=== PATIENT | female | born 1965 | race Caucasian/White ===

== ENCOUNTER 2017-01-21 16:52 | Emergency (ER) | payer BC, OTHER ==
[~2017-01-21] VITALS: Ht 166.4 cm; Wt 74.6 kg
[2017-01-21 17:02] VITALS: TEMP 37; Ht 166.4 cm; Wt 74.6 kg
--- NOTE | 2017-01-21 17:42 | DIAGNOSTIC IMAGING REPORT ---
SINGLE VIEW CHEST CLINICAL HISTORY: Atypical chest pain. FINDINGS: An AP, portable, upright chest radiograph is obtained. No prior studies are available for comparison at the time of dictation. The examination is degraded by portable technique and patient rotation. A right internal jugular central venous infusion port is in place. The tip projects over the superior vena cava. The cardiomediastinal silhouette is unremarkable. There is mild elevation of left hemidiaphragm with left basilar atelectasis. No airspace consolidation is seen typical for pneumonia and there is no large pleural effusion. No pneumothorax is seen. The bony thorax is grossly intact. Surgical clips are noted in the upper abdomen. IMPRESSION: No acute cardiopulmonary abnormality. Electronically signed by: Hitesh Castellon M.D. 01/21/2017 5:40 PM Dictated Date/Time: 01/21/2017 5:39 PM
[2017-01-21] MEDS ORDERED: HYDROmorphone INJ 0.5 MG/0.5 ML SYR IV STA ×3 (18:02→21:27)
[2017-01-21] MEDS ORDERED: PROMETHAZINE HCL INJ 25 MG in SODIUM CHLORIDE 0.9% 50ML 50 ML IV STA (18:02)
[2017-01-21 18:12] LABS: BASO % 0.6 %; BASO ABS # 0.04 K/uL (0-0.2); COMPLETE YES; EOS % 3.4 %; HEMATOCRIT 30.5 % (37-47); IG% 0.2 %; LYMPH % 42.2 %; LYMPH ABS # 2.72 K/uL (1.2-3.4); MEAN CELL VOLUME 76.8 fL (80-100); MEAN CORPUSCULAR HEMOGLOBIN 24.7 pg (25-34); MEAN CORPUSCULAR HGB CONC 32.1 g/dl (32-36); MEAN PLATELET VOLUME 10.5 fL (7.4-10.4); MONO % 9.2 %; NEUT % 44.4 %; PLATELET COUNT 225 K/uL (130-400); RED BLOOD COUNT 3.97 M/uL (4.2-5.4); WHITE BLOOD COUNT 6.44 K/uL (4.8-10.8)
[2017-01-21] MEDS ORDERED: CLONIDINE HCL 0.1 MG/24 HR TRANSDERM SYS TD STA (18:28)
[2017-01-21] MEDS ORDERED: CLONIDINE HCL 0.1 MG TAB PO ONE (18:30)
[2017-01-21] MEDS ORDERED: SUCRALFATE 1 GM/10 ML UDC PO STA (18:42)
[2017-01-21] MEDS ORDERED: DIAZ-165 PO ×3 (18:43→19:22)
[2017-01-21] MEDS ORDERED: AMLO-114 PO (18:45)
[2017-01-21] MEDS ORDERED: RANI300T2 PO (18:46)
[2017-01-21] MEDS ORDERED: PRLSR20 PO (18:47)
[2017-01-21] MEDS ORDERED: CLON0.1D5 TD (18:49)
[2017-01-21] MEDS ORDERED: MULT1CHW37 PO (18:51)
[2017-01-21] MEDS ORDERED: GABA600T PO (18:52)
[2017-01-21] MEDS ORDERED: APIX1TAB3 PO (18:53)
[2017-01-21] MEDS ORDERED: DOXE100C4 PO (18:55)
[2017-01-21] MEDS ORDERED: METO-157 PO (18:57)
[2017-01-21] MEDS ORDERED: IBUP600T44 PO (18:58)
[2017-01-21] MEDS ORDERED: ACET-1311 PO (18:59)
[2017-01-21] MEDS ORDERED: MOML PO (19:03)
[2017-01-21] MEDS ORDERED: ALUMSUS2 PO (19:03)
[2017-01-21] MEDS ORDERED: NLXI4X IM (19:04)
[2017-01-21] MEDS ORDERED: MELATAB2 PO (19:05)
[2017-01-21] MEDS ORDERED: HYDR50CA2 PO (19:14)
[2017-01-21] MEDS ORDERED: IMD/2 PO (19:14)
[2017-01-21] MEDS ORDERED: CLON0.1T12 PO (19:14)
[2017-01-21] MEDS ORDERED: PROM25TA9 PO (19:14)
[2017-01-21 19:17] LABS: PARTIAL THROMBOPLASTIN RATIO 1.1; PROTHROMBIN TIME (PATIENT) 10.5 SECONDS (9.0-12.0)
[2017-01-21 19:22] LABS: URINE APPEARANCE CLEAR (CLEAR); URINE BILIRUBIN NEG (NEG); URINE COLOR YELLOW; URINE NITRITE NEG (NEG); URINE SPECIFIC GRAVITY 1.009 (1.000-1.030); UROBILINOGEN NEG (NEG); ZZUR CULT IF INDIC CLEAN CATCH NO
[2017-01-21 19:33] LABS: ALT/SGPT 23 U/L (12-78); BLOOD UREA NITROGEN 22 mg/dl (7-18); BUN/CREATININE RATIO 15.4 (10-20); CALCIUM 8.6 mg/dl (8.5-10.1); CARBON DIOXIDE 24 mmol/L (21-32); CHLORIDE 112 mmol/L (98-107); GLUCOSE 90 mg/dl (70-99); POTASSIUM 4.3 mmol/L (3.5-5.1); SODIUM 145 mmol/L (136-145)
[2017-01-21 19:43] LABS: ALKALINE PHOSPHATASE 84 U/L (45-117); AST/SGOT 16 U/L (15-37); CKMB/CK RATIO 2.5 (0-3.0)
[2017-01-21 19:45] LABS: MANUAL MICROSCOPIC REQUIRED? NO; REVIEW REQ? NO
[2017-01-21] MEDS ORDERED: SODIUM CHLORIDE 0.9% 1000ML 1,000 ML IV STA (19:46)
[2017-01-21 20:06] LABS: BENZODIAZEPINE, URINE POS (NEG); COCAINE,URINE NEG (NEG); PHENCYCLIDINE, URINE NEG (NEG)
--- NOTE | 2017-01-21 21:12 | EMERGENCY ROOM VISIT NOTE ---
History First contact with patient: 16:58 Chief Complaint: CHEST PAIN Stated Complaint: CHEST PAIN Nursing Triage Summary: Patient is from [facility] for dextox from [place] . States she was taking 10 - 15 at a time. Last took one pill yesterday. Started with chest pain last night but thought it was withdrawl symptoms, and was being given Valium per patient. She is from [place], but flew yesterday from [place]. History of Gastric bypass, blood clot in right Carotid on Eliquis twice a day. Given 324 ASA enroute, and 1 spray of Nitro without relief. History of Present Illness The patient is a 51 year old female who presents to the Emergency Room with complaints of left central chest pain and shortness of breath. The patient is concerned that she is having withdrawal symptoms after being taken off of Zanaflex that she has been on for approximately 5 years related to chronic back pain, and then started to abuse Zanaflex secondary to depression and insomnia after undergoing a gastric bypass with Nikki-en-Y revision. The patient is currently at [facility], having arrived at their facility yesterday. The patient is originally from [place], and when trying to find a rehabilitation facility that would take her, no one else near [place] would take her because she has an A-port. The patient reports that she required A-port placement after her Nikki-en-Y procedure secondary to malnutrition. Original gastric bypass sleeve was performed in 2014. She had her Nikki-en-Y revision in July 2015 because of malnutrition and weight loss. The patient reports that she was recently admitted at [facility] in [place] for the symptoms, and was found to have a blood clot in her right upper extremity and neck. She was started on Elaquis on 12/18/16. The patient denies any significant cardiopulmonary history. Her chest pain is not worsened with movement. The patient was transported here via [facility] ambulance, and was administered nitroglycerin and aspirin. She had no relief of her chest pain with the nitroglycerin. She rates her chest discomfort an 8 out of 10. Regarding her psychiatric history, the patient denies any suicidal or homicidal thoughts. The patient reports that she frequently visits her twin daughters, one of which who lives in [place] and the other who is in the . Her sister lives in [place], which is where she was when her sister discovered that she was abusing Zanaflex. The sister immediately stopped the patient's Zanaflex 2 days ago until she spoke with [facility] staff to advise her to continue with the Zanaflex until she arrived at their facility. The patient reports that she is currently wearing a clonidine patch that she has been using for hypertension with decent blood pressure control. She reports that she was also started on other medications, including Neurontin, Valium and doxepin. Review of Systems HEENT: Denies dizziness, visual problems, hearing loss, tinnitus. Denies difficulty swallowing or oral lesions. PULMONARY: Denies cough, sputum production or hemoptysis. CARDIOVASCULAR: Denies palpitations, dyspnea on or orthopnea, otherwise see history of present illness. GASTROINTESTINAL: Denies diarrhea, constipation, vomiting or significant abdominal pain. GENITOURINARY: Denies dysuria, frequency, urgency or nocturia. NEUROLOGIC: Denies history of epilepsy, CVA, TIA or chronic headaches. MUSCULOSKELETAL: See history of present illness for history of chronic back pain SKIN: Denies rashes or lesions. PSYCHIATRIC: Denies history of significant mental illness. She complains of depression since her gastric bypass surgery. ENDOCRINE: Denies history of diabetes or thyroid disorders. Past Medical/Surgical History Medical Problems: (1) Hypertension (2) Muscle relaxer abuse Surgical Problems: (1) History of Nikki-en-Y gastric bypass Family History Unremarkable Social History Smoking Status: Never Smoker Alcohol Use: none Marital Status: Housing Status: lives alone Occupation Status: unemployed Current/Historical Medications Scheduled Amlodipine (Norvasc), 10 MG PO QAM Apixaban (Eliquis), 5 MG PO BID Clonidine Hcl (Catapres-Tts), 1 PATCH TD WK Diazepam (Valium), 5 MG PO UD Diazepam (Valium), 5 MG PO UD Gabapentin (Neurontin), 600 MG PO BID Multiple Vitamins W/ Minerals (Multi Adult Gummies), 1 TAB PO DAILY Omeprazole (Prilosec), 20 MG PO DAILY Ranitidine (Zantac), 300 MG PO HS Scheduled PRN Acetaminophen (Tylenol), 650 MG PO QID PRN for los Alum & Mag Hydrox-Simethicone (Maalox Max Susp), 30 ML PO TID PRN for los Clonidine Hcl (Catapres), 1 TAB PO BID PRN for Blood Pressure Diazepam (Valium), 5 MG PO UD PRN for Anxiety Doxepin Hcl (Doxepin), 100 MG PO HS PRN for Insomnia Hydroxyzine Pamoate (Vistaril), 50 MG PO TID PRN for Anxiety Ibuprofen (Motrin), 600 MG PO QID PRN for los Loperamide Hcl (Imodium), 4 MG PO UD PRN for Diarrhea Magnesium Hydroxide (Milk Of Magnesia), 30 ML PO DAILY PRN for los Melatonin (Melatonin Maximum Strengt), 1 TAB PO HS PRN for Sleep Metoclopramide (Reglan), 10 MG PO QID PRN for Nausea Naloxone HCl (Naloxone HCl), 0.4 MG IM UD PRN for sedation Promethazine Hcl (Phenergan), 25 MG PO Q4H PRN for Nausea or Vomiting Allergies Coded Allergies: Iodinated Diagnostic Agents (Verified Allergy, Unknown, ANAPHYLAXIS, ) Latex (Verified Allergy, Unknown, ANAPHYLAXIS, 01/21/17) Penicillins (Verified Allergy, Unknown, ANAPHYLAXIS, 01/21/17) Morphine (Verified Adverse Reaction, Intermediate, NAUSEA, 01/21/17) Physical Exam Vital Signs Date Time Temp Pulse Resp B/P (MAP) Pulse Ox O2 Delivery O2 Flow Rate FiO2 01/21/17 20:47 85 18 139/85 99 Room Air 01/21/17 19:47 97 18 104/76 93 Room Air 01/21/17 18:34 96 16 145/100 98 Room Air 01/21/17 18:08 104 16 143/104 98 Room Air 01/21/17 17:27 Room Air 01/21/17 17:21 91 01/21/17 17:02 37.0 95 20 134/94 99 Room Air 01/21/17 17:02 99 Room Air 01/21/17 17:00 Room Air Physical Exam CONSTITUTIONAL: Alert and oriented 3. The patient does appear in moderate discomfort from pain. HEENT: Normocephalic, atraumatic. Pupils equal, round and reactive. No scleral icterus or conjunctival injection/pallor. OROPHARYNX: Mucous membranes are moist. No tonsillar hypertrophy or exudates. NECK: Full active range of motion without discomfort. No JVD or carotid bruits. RESPIRATORY: Clear to auscultation bilaterally with no wheezing, crackles, rhonchi or stridor. The patient has an A-port on the right anterior chest without evidence for erythema, increased warmth to palpation or other wounds. CARDIOVASCULAR: Regular rate and rhythm with no murmurs, rubs or gallops. GASTROINTESTINAL: Bowel sounds present in all quadrants. Patient has multiple surgical incisions without evidence for poor healing, erythema or fluctuance. Otherwise abdomen is soft and nontender to palpation. No rigidity, guarding or rebound. MUSCULOSKELETAL: Full range of motion of all joints without discomfort. INTEGUMENTARY: No rash or other significant dermatologic conditions noted. HEMATOLOGIC: The patient does have ecchymosis on the left foot, otherwise no other skin lesions or petechiae. NEUROLOGIC: Cranial nerves II-XII grossly intact. No focal neurologic deficits noted. No hyperreflexia noted. Medical Decision & Procedures ER Provider Diagnostic Interpretation: My interpretation of an ECG shows a normal sinus rhythm of [address] elevation or other conduction abnormalities. ECG was reviewed with Dr. Colby. My interpretation of a portable chest x-ray does not show any acute consolidations, pneumothorax or abdominal free air. Radiologist report is as follows: SINGLE VIEW CHEST CLINICAL HISTORY: Atypical chest pain. FINDINGS: An AP, portable, upright chest radiograph is obtained. No prior studies are available for comparison at the time of dictation. The examination is degraded by portable technique and patient rotation. A right internal jugular central venous infusion port is in place. The tip projects over the superior vena cava. The cardiomediastinal silhouette is unremarkable. There is mild elevation of left hemidiaphragm with left basilar atelectasis. No airspace consolidation is seen typical for pneumonia and there is no large pleural effusion. No pneumothorax is seen. The bony thorax is grossly intact. Surgical clips are noted in the upper abdomen. IMPRESSION: No acute cardiopulmonary abnormality. Laboratory Results 01/21/17 17:45 Red Blood Count 3.97, Mean Corpuscular Volume 76.8, Mean Corpuscular Hemoglobin 24.7, Mean Corpuscular Hemoglobin Concent 32.1, Mean Platelet Volume 10.5, Neutrophils (%) (Auto) 44.4, Lymphocytes (%) (Auto) 42.2, Monocytes (%) (Auto) 9.2, Eosinophils (%) (Auto) 3.4, Basophils (%) (Auto) 0.6, Neutrophils # (Auto) 2.86, Lymphocytes # (Auto) 2.72, Monocytes # (Auto) 0.59, Eosinophils # (Auto) 0.22, Basophils # (Auto) 0.04 01/21/17 18:54 Test 01/21/17 17:45 01/21/17 18:36 01/21/17 18:54 White Blood Count 6.44 K/uL (4.8-10.8) Red Blood Count 3.97 M/uL (4.2-5.4) Hemoglobin 9.8 g/dL (12.0-16.0) Hematocrit 30.5 % (37-47) Mean Corpuscular Volume 76.8 fL (80-100) Mean Corpuscular Hemoglobin 24.7 pg (25-34) Mean Corpuscular Hemoglobin Concent 32.1 g/dl (32-36) Platelet Count 225 K/uL (130-400) Mean Platelet Volume 10.5 fL (7.4-10.4) Neutrophils (%) (Auto) 44.4 % Lymphocytes (%) (Auto) 42.2 % Monocytes (%) (Auto) 9.2 % Eosinophils (%) (Auto) 3.4 % Basophils (%) (Auto) 0.6 % Neutrophils # (Auto) 2.86 K/uL (1.4-6.5) Lymphocytes # (Auto) 2.72 K/uL (1.2-3.4) Monocytes # (Auto) 0.59 K/uL (0.11-0.59) Eosinophils # (Auto) 0.22 K/uL (0-0.5) Basophils # (Auto) 0.04 K/uL (0-0.2) RDW Standard Deviation 38.7 fL (36.4-46.3) RDW Coefficient of Variation 13.6 % (11.5-14.5) Immature Granulocyte % (Auto) 0.2 % Immature Granulocyte # (Auto) 0.01 K/uL (0.00-0.02) Urine Color YELLOW Urine Appearance CLEAR (CLEAR) Urine pH 7.0 (4.5-7.5) Urine Specific [place] 1.009 (1.000-1.030) Urine Protein NEG (NEG) Urine Glucose (UA) NEG (NEG) Urine Ketones NEG (NEG) Urine Occult Blood TRACE (NEG) Urine Nitrite NEG (NEG) Urine Bilirubin NEG (NEG) Urine Urobilinogen NEG (NEG) Urine Leukocyte Esterase NEG (NEG) Urine WBC (Auto) 1-5 /hpf (0-5) Urine RBC (Auto) 0-4 /hpf (0-4) Urine Hyaline Casts (Auto) 0 /lpf (0-5) Urine Epithelial Cells (Auto) 10-20 /lpf (0-5) Urine Bacteria (Auto) NEG (NEG) Urine Test NEG (NEG) Urine Opiates Screen NEG (NEG) Urine Methadone, Qualitative NEG (NEG) Urine Barbiturates NEG (NEG) Urine Phencyclidine (PCP) Level NEG (NEG) Ur Amphetamine/Methamphetamine NEG (NEG) MDMA (Ecstasy) Screen NEG (NEG) Urine Benzodiazepines Screen POS (NEG) Urine Cocaine Metabolite NEG (NEG) Urine Marijuana (THC) NEG (NEG) Prothrombin Time 10.5 SECONDS (9.0-12.0) Prothromb Time International Ratio 1.0 (0.9-1.1) Activated Partial Thromboplast Time 27.3 SECONDS (21.0-31.0) Partial Thromboplastin Ratio 1.1 Anion Gap 9.0 mmol/L (3-11) Est Creatinine Clear Calc Drug Dose 49.7 ml/min Estimated GFR () 51.0 Estimated GFR (Non- 44.0 BUN/Creatinine Ratio 15.4 (10-20) Calcium Level 8.6 mg/dl (8.5-10.1) Total Bilirubin 0.2 mg/dl (0.2-1) Direct Bilirubin < 0.1 mg/dl (0-0.2) Aspartate Amino Transf (AST/SGOT) 16 U/L (15-37) Alanine Aminotransferase (ALT/SGPT) 23 U/L (12-78) Alkaline Phosphatase 84 U/L (45-117) Total Creatine Kinase 83 U/L (26-192) Creatine Kinase MB 2.1 ng/ml (0.5-3.6) Creatine Kinase MB Ratio 2.5 (0-3.0) Troponin I 0.038 ng/ml (0-0.045) Pro-B-Type Natriuretic Peptide 240 pg/ml (0-450) Total Protein 6.7 gm/dl (6.4-8.2) Albumin 3.7 gm/dl (3.4-5.0) Lipase 124 U/L (73-393) Thyroid Stimulating Hormone (TSH) 1.010 uIu/ml (0.300-4.500) Acetaminophen Level < 2 ug/ml (10-30) Ethyl Alcohol mg/dL < 3.0 mg/dl (0-3) The above labs were reviewed. Troponin was normal. Hemoglobin is 9.8 with hematocrit of 30.5. BUN and creatinine are 22 and 1.4, respectively. Remaining labs were grossly normal. Medications Administered Medications (Trade) Dose Ordered Sig/Talia Route Start Time Stop Time Status Last Admin Dose Admin Hydromorphone HCl (Dilaudid Inj) 0.5 mg NOW STAT IV 01/21/17 18:02 01/21/17 18:03 DC 01/21/17 18:31 0.5 MG Promethazine HCl 25 mg/Sodium Chloride 51 ml @ 204 mls/hr NOW STAT IV 01/21/17 18:02 01/21/17 18:16 DC 01/21/17 18:31 204 MLS/HR Clonidine HCl (Catapres Tab) 0.1 mg NOW ONCE PO 01/21/17 18:30 01/21/17 18:33 DC 01/21/17 18:40 0.1 MG Sucralfate (Carafate Susp) 1 gm ONE STAT PO 01/21/17 18:42 01/21/17 18:45 DC 01/21/17 19:03 1 GM Hydromorphone HCl (Dilaudid Inj) 0.5 mg NOW STAT IV 01/21/17 19:31 01/21/17 19:32 DC 01/21/17 19:41 0.5 MG Sodium Chloride 1,000 ml @ 999 mls/hr Q1H1M STAT IV 01/21/17 19:46 01/21/17 20:46 DC 01/21/17 19:54 999 MLS/HR ED Course Patient history and physical exam were performed. Nurse's notes were reviewed. Vital signs were reviewed and grossly normal. O2 saturation is 99% on room air. The patient is not tachycardic or significantly hypertensive. She is also afebrile. I also reviewed limited documentation that accompanied the patient from [facility], including review of her medication list. I also reviewed this medication list with our pharmacist in the department. Our biggest concern at this point is the immediate cessation of her Zanaflex and possible withdrawal reaction; however we also feel that the medications that have been provided at [facility] should help with her symptoms within the next several days. I did explain to the patient that I want to rule out cardiopulmonary etiologies for her chest pain and shortness of breath. The patient was in agreement. I also discussed the case with Dr. Colby, ED attending physician, who also helped to guide patient workup. The patient's port was accessed, and labs were drawn. ECG and portable chest x-ray were normal. Review of labs shows a hemoglobin of 9.8 and creatinine of 1.4. The patient was hydrated with a liter normal saline. The patient was administered an additional clonidine 0.1 mg orally, along with Carafate 1 g suspension at the patient's request. She was also administered Dilaudid 0.5 mg and Phenergan 25 mg IVP. She did require 2 additional doses of Dilaudid 0.5 mg for persistent pain. I did speak directly with [facility] staff. Their facility is not affiliated with a certain medical office. The patient was provided contact information for [facility] cardiology. They were instructed to contact their office tomorrow for further follow-up and reevaluation. The patient was instructed to return to the emergency department for any worsening pain, shortness of breath, fever or other concerning symptoms. I will defer further medication treatment for the patient's Zanaflex addiction to [facility] medical staff. The patient voiced understanding of all discharge instructions , and was happy with plan of care. Medical Decision The patient presents to the emergency department with complaint of chest pain and shortness of breath. Her workup today is not suggestive of acute cardiopulmonary etiology. I do feel that the patient is at extremely low risk for pulmonary embolism given her Eliquis treatment. The patient gives no history to suggest pericarditis or endocarditis. I do not suspect any abdominal referred pain. Impression Primary Impression: Left sided chest pain Additional Impressions: History of Nikki-en-Y gastric bypass Muscle relaxer abuse Departure Information Referrals No Doctor, Assigned (PCP) Patient Instructions My [facility] Health Problem Qualifiers
[2017-01-21 21:54] VITALS: BP 101/69; PULSE 81; O2SAT 96
[2017-01-24 23:48] LABS: HYDROXYETHYLFLURAZEPAM CONF NEGATIVE NG/ML (CUTOFF=50); HYDROXYMIDAZOLAM NEGATIVE NG/ML (CUTOFF=50); HYDROXYTRIAZOLAM CONF NEGATIVE NG/ML (CUTOFF=50); TEMAZEPAM CONF >2000 NG/ML (CUTOFF=50)
== END 2017-01-21 21:54 | disposition home or self-care (01) ==
LOC: C.EDC 16:54
DX: R07.9 Chest pain, unspecified (principal); F11.10 Opioid abuse, uncomplicated; I10 Essential (primary) hypertension